=== PATIENT | female | born 1965 | race Caucasian/White ===

== ENCOUNTER 2019-06-17 08:19 | Day surgery (SDC) | payer OTHER ==
[2019-06-17 08:56] VITALS: BMI 35.2
[2019-06-17 10:56] VITALS: TEMP 97.9
[2019-06-17 11:36] VITALS: PULSE 64
[2019-06-17 12:06] VITALS: BP 122/73
--- NOTE | 2019-06-18 16:58 | PATH ---
Surgical Pathology Report Patient Name: NALINI GRIDER [facility]. Rec. #: [id number] /Age/Gender: 1965 (Age: 54) / F Account: [id number] Location: U-ENDOSCOPY Taken: 06/17/2019 Received: 06/17/2019 Reported: 06/18/2019 Physicians: Cinthya Arias M.D. Specimen(s) Received RIGHT COLON POLYPS Clinical History Adenoma surveillance, family history of colon cancer Postoperative diagnosis: Right colon polyps Final Diagnosis RIGHT COLON POLYPS, BIOPSY: FRAGMENT OF POLYPOID COLONIC MUCOSA WITH FOCAL SURFACE HYPERPLASTIC CHANGE. Electronically Signed Annemarie Sun M.D. Gross Description Received in formalin labeled "right colon polyps," is a 0.9 x 0.5 x 0.2 cm aggregate of morfin soft tissue fragments. The formalin is filtered and the specimen is entirely submitted in one cassette. DL/06/17/2019 saudi/06/17/2019
== END 2019-06-17 11:50 | disposition home or self-care (01) ==
LOC: JASU-ENDO 08:19
PROVIDERS: ATTEND Internal Medicine Gastroenterology
PROC: 0DBK8ZX Excision of Ascending Colon, Via Natural or Artificial Opening Endoscopic, Diagnostic (ICD-10-PCS; principal; 2019-06-17 09:45)
DX: Z12.11 Encounter for screening for malignant neoplasm of colon (principal); Z86.010 Personal history of colon polyps; Z80.0 Family history of malignant neoplasm of digestive organs; D12.2 Benign neoplasm of ascending colon

== ENCOUNTER → 2021-06-01 | Day surgery (SDC) | payer OTHER | END | disposition home or self-care (01) | LOC: FMAMMOTONE 08:35 | PROVIDERS: ATTEND Surgery | PROC: 0HBT3ZX Excision of Right Breast, Percutaneous Approach, Diagnostic (ICD-10-PCS; principal; 2021-06-01) | DX: D05.11 Intraductal carcinoma in situ of right breast (principal); N64.89 Other specified disorders of breast; R92.0 Mammographic microcalcification found on diagnostic imaging of breast | CPT/HCPCS: 19081; 76098-TC-FY; 87899; 88305-TC; 88341-TC; 88342-TC; A4648 ==